=== PATIENT | male | born 1965 | race Caucasian/White ===

== ENCOUNTER 2020-09-04 10:59 | Day surgery (SDC) | payer OTHER ==
[~2020-09-04] VITALS: Ht 172.7 cm; Wt 86.6 kg
[2020-09-04 12:00] LABS: BASOPHILS % (AUTO) 0.6 % (0.0-2.0); EOSINOPHILS # (AUTO) 0.1 K/uL (0-0.4); EOSINOPHILS % (AUTO) 1.6 % (0.0-4.0); HEMATOCRIT 41.7 % (36-52); HEMOGLOBIN 13.9 g/dL (12.0-18.0); LYMPHOCYTES # (AUTO) 2.1 K/uL (2.0-11.5); LYMPHOCYTES % (AUTO) 29.1 % (20.5-51.1); MEAN CORPUSCULAR HEMOGLOBIN 29 pg (27-31); MEAN CORPUSCULAR HGB CONC 33 g/dL (33-37); MONOCYTES # (AUTO) 0.8 K/uL (0.8-1.0); MONOCYTES % (AUTO) 11.1 % (1.7-9.3); NEUTROPHILS # (AUTO) 4.1 K/uL (1.8-7.7); NEUTROPHILS % (AUTO) 57.6 % (42.2-75.2); PLATELET COUNT (AUTO) 242 K/uL (140-450); RED BLOOD CELL COUNT(AUTO) 4.79 MIL/uL (4.20-6.10); RED CELL DISTRIBUTION WIDTH 13.6 % (11.6-13.7); WHITE BLOOD COUNT (AUTO) 7.2 K/uL (4.8-10.8)
[2020-09-04 12:12] LABS: ALBUMIN 4.1 g/dL (3.4-5.0); ANION GAP 10.9 (8-16); CARBON DIOXIDE 26.7 mmol/L (21-32); CREATININE 1.1 mg/dL (0.6-1.3); POTASSIUM 3.6 mmol/L (3.5-5.1); TOTAL BILIRUBIN 0.7 mg/dL (0.0-1.0)
[2020-09-04] MEDS ORDERED: BUPIVACAINE-MPF/EPI 0.25% 30 ML VIAL INJ ONE (13:19)
[2020-09-04] MEDS ORDERED: SEVOFLURANE 250 ML BTL INH ONE (13:45)
[2020-09-04] MEDS ORDERED: MIDAZOLAM 2 MG/2 ML VIAL ONE (13:50)
[2020-09-04] MEDS ORDERED: fentaNYL citrate 0.05 MG/ML VIAL ONE (13:50)
[2020-09-04] MEDS ORDERED: ONDANSETRON 4 MG/2 ML VIAL ONE ×2 (14:04)
[2020-09-04] MEDS ORDERED: DEXAMETHASONE 4 MG/ML VIAL ONE (14:04)
[2020-09-04] MEDS ORDERED: PROPOFOL 200 MG/20 ML VIAL IV ONE (14:04)
[2020-09-04] MEDS ORDERED: HYDROmorphone 1 MG/ML AMP IVP PRN ×2 (14:25→14:45)
[2020-09-04] MEDS ORDERED: LACTATED RINGERS 1,000 ML IV SCH (14:25)
[2020-09-04] MEDS ORDERED: MEPERIDINE 25 MG/ML SYR IVP PRN (14:25)
[2020-09-04] MEDS ORDERED: ONDANSETRON 4 MG/2 ML VIAL IVP PRN (14:25)
[2020-09-04] MEDS ORDERED: diphenhydrAMINE 50 MG/ML VIAL IVP PRN (14:25)
[2020-09-04] MEDS ORDERED: ePHEDrine 50 MG/ML VIAL ONE (14:37)
[2020-09-04] MEDS ORDERED: HYDROcodone/APAP 5/325 MG 1 TAB TAB PO PRN (14:45)
[2020-09-04] MEDS ORDERED: MORPHINE SULFATE 2 MG/ML SYR IVP PRN (14:45)
[2020-09-04] MEDS ORDERED: MORPHINE SULFATE 4 MG/ML SYR IV PRN (14:45)
[2020-09-04] MEDS ORDERED: ONDANSETRON 4 MG/2 ML VIAL IV PRN (14:45)
== END 2020-09-04 16:05 | disposition home or self-care (01) ==
LOC: MDS 10:59 → MMU 11:02 → MDS 16:05
PROVIDERS: ATTEND Surgery
DX: D17.1 Benign lipomatous neoplasm of skin and subcutaneous tissue of trunk (principal); I10 Essential (primary) hypertension; Z79.899 Other long term (current) drug therapy
CPT/HCPCS: 21933; 36415; 71045; 80053; 85025; 88304; 93005; J1100; J2250; J2405; J2704; J3010; J3490; J7120